=== PATIENT | female | born 1980 | race Hispanic/Latino ===

== ENCOUNTER → 2017-10-11 | Day surgery (SDC) | payer BC ==
[2017-10-10 15:23] LABS: ANION GAP 13.5 mmol/L (8-16); BLOOD UREA NITROGEN 7 mg/dL (7-26); BUN/CREATININE RATIO 11 (6-25); CALCIUM 9.4 mg/dL (8.4-10.2); CARBON DIOXIDE 25 mmol/L (22-29); CHLORIDE 105 mmol/L (98-107); CREATININE, SERUM 0.65 mg/dL (0.57-1.11); EST GLOMERULAR FILTRATION RATE > 60 ML/MIN (60-); GLUCOSE 120 mg/dL (74-118); POTASSIUM 3.5 mmol/L (3.5-5.1); SODIUM 140 mmol/L (136-145)
[~2017-10-11] MED LIST: CEFTRIAXONE SOD 1 GM VIAL ONE; DEXAMETHASONE SOD PHOS INJ 4 MG/ML VIAL ONE; FENTANYL CITRATE/PF 100MCG/2 ML INJ ONE; IOPAMIDOL 610MG/1ML 300 MG/ML VIAL IV ONE; LIDOCAINE HCL 2% LOCAL INJ 5 ML SDV VIAL INJ ONE; METFORMIN HCL500 MG PO; MIDAZOLAM HCL 2 MG/2 ML VIAL ONE; ONDANSETRON HCL INJ 2 MG/ML VIAL ONE; PROPOFOL IV EMULSION 10 MG/ML 20 ML VIAL ONE; SEVOFLURANE INHAL SOLN 250 ML PEN BTL ONE
--- NOTE | 2017-10-11 13:53 | Operative Report ---
DATE OF PROCEDURE: October 11, 2017 PREOPERATIVE DIAGNOSES 1. Indwelling right ureteral stent. 2. Right ureteral calculus. POSTOPERATIVE DIAGNOSES 1. Indwelling right ureteral stent. 2. Right ureteral calculus. PROCEDURES 1. Cystourethroscopy with complicated removal of right indwelling ureteral stent (entirely separate procedure for complicated removal of right ureteral stent complicated secondary to encrustation). 2. Right-sided ureteroscopy (entirely separate procedure for the diagnosis of ureteral calculi). 3. Supervision of fluoroscopy. 4. Interpretation of retrograde pyelography. ANESTHESIA: General. ESTIMATED BLOOD LOSS: Minimal. COMPLICATIONS: None. INDICATIONS FOR PROCEDURE: Ms. Carson is a very pleasant, 37-year-old female with a large, obstructing, ureteral calculus and stent placement. She and I had a long discussion regarding the alternatives, risks and benefits, including doing nothing, stent removal, ureteroscopy, percutaneous surgery and open surgery. She voiced an understanding of the options, the alternatives, and the risks and benefits, and she elected to proceed. PROCEDURE IN DETAIL: After informed consent was obtained, the patient was taken to the operating suite. She was placed supine on the operating table. She underwent general anesthesia by the anesthesia service. She was placed in the dorsal lithotomy position. She was sterilely prepped and draped in the standard fashion for cystoscopy. A 22.5-[place] cystoscope was inserted per urethra. A normal urethra was noted. Panendoscopy of the bladder revealed no tumors and no stones. Both ureteral orifices were in their normal anatomic location. A stent was seen extruding from the right ureteral orifice and was encrusted. It was grasped and removed intact. An attempt was made to pass a guidewire through this but failed secondary to encrustation. A guidewire was then inserted alongside the stent. The ureteroscope was driven alongside. There were several small fragments approximately 0.04 mm in diameter, approximately the size of the guidewire. With no obstructing stones seen, the ureteroscope was driven to the level of the proximal ureter. Retrograde pyelogram performed with the ureteroscope revealed a dilated system, likely chronic. Under fluoroscopy, the collecting system drained promptly within 5 minutes. A postdrainage film was taken under fluoroscopy showing the wire and the drained calices. At this time, with no obstructing stones seen, the wire was removed. The bladder was drained. The patient was awakened from anesthesia and transported to the recovery room in excellent condition with no untoward effects noted. SUPERVISION OF FLUOROSCOPY AND INTERPRETATION OF RETROGRADE PYELOGRAPHY: I was present throughout the entire procedure and supervised the use of fluoroscopy. There was no radiologist present at any time during the procedure. Attention was turned toward the right ureteral orifice, which was catheterized with a ureteroscope. Retrograde pyelogram was performed revealing delicate ureter, dilated collecting system, interim removal of the stent, and ureteral stones. Job#: [id number]
== END | disposition home or self-care (01) ==
LOC: OR 11:21
PROVIDERS: ATTEND Urology
DX: N20.1 Calculus of ureter (principal); Z46.6 Encounter for fitting and adjustment of urinary device; E11.9 Type 2 diabetes mellitus without complications; Z01.812 Encounter for preprocedural laboratory examination
CPT/HCPCS: 36415 ×2; 52351; 74420; 80048; 81025; 82948; J0696; J1100; J2001; J2250; J2405; Q9967